=== PATIENT | female | born 2000 | race Caucasian/White ===

== ENCOUNTER 2024-11-10 02:39 | Emergency (ER) | payer MEDICAID ==
[~2024-11-10] VITALS: Ht 160 cm; Wt 99.8 kg
[2024-11-10] MEDS ORDERED: ONDANSETRON HCL/PF 4 MG/2 ML VIAL ONE (04:14)
[2024-11-10] MEDS ORDERED: ACETAMINOPHEN 325 MG TABLET ONE (04:14)
[2024-11-10 04:18] LABS: PLATELET COUNT (AUTO) 308 K/uL (150-450); RED BLOOD CELL COUNT(AUTO) 4.33 MIL/uL (4.0-5.2); RED CELL DISTRIBUTION WIDTH 13.6 % (11.5-15.0); WHITE BLOOD COUNT (AUTO) 13.5 K/uL (4.3-11.0)
[2024-11-10] MEDS: ONDANSETRON HCL/PF 4 MG/2 ML VIAL IV ONE (04:18)
[2024-11-10] MEDS: ACETAMINOPHEN 325 MG TABLET PO ONE (04:18)
[2024-11-10 04:26] LABS: CALCIUM, SERUM 9.4 mg/dL (8.5-10.1); CREATININE 0.6 mg/dL (0.6-1.3); SODIUM SERUM 136 mmol/L (136-145); UREA NITROGEN, BLOOD 8 mg/dL (7-18)
[2024-11-10 04:31] LABS: ASPARTATE AMINOTRANSFERASE 23 U/L (15-37); TOTAL PROTEIN, SERUM 7.6 g/dL (6.4-8.2)
[2024-11-10 04:32] LABS: INR 0.95 (0.91-1.10)
[2024-11-10 08:03] VITALS: BP 121/74; TEMP 98.2; O2SAT 100
== END 2024-11-10 08:04 | disposition home or self-care (01) ==
LOC: ER 02:48
DX: O26.892 Other specified pregnancy related conditions, second trimester (principal); R10.9 Unspecified abdominal pain; R11.0 Nausea; M79.642 Pain in left hand; Z3A.14 14 weeks gestation of pregnancy
CPT/HCPCS: 99285; 96374; 93971; 93005; 85025; 80048; 80076; 36415; 84484; 85730; J2405